=== PATIENT | female | born 1950 | race American Indian/Alaskan Native ===

== ENCOUNTER 2019-04-11 10:52 | Day surgery (SDC) | payer MEDICARE ==
[~2019-04-11 10:52] MED LIST: APRACLONIDINE 1% OPHTH SOLN DROPERETTE ONE; PHENYLEPHRINE 10% OPHTH SOLN 5 ML ONE; TROPICAMIDE 1% OPHTH SOLN 3 ML ONE
[2019-04-11 11:27] VITALS: BP 115/63
[2019-04-11] MEDS ORDERED: TROPICAMIDE 1% OPHTH SOLN 3 ML OS ONE (11:27)
[2019-04-11] MEDS ORDERED: APRACLONIDINE 1% OPHTH SOLN DROPERETTE OS ONE (11:27)
[2019-04-11] MEDS ORDERED: PHENYLEPHRINE 10% OPHTH SOLN 5 ML OS ONE (11:27)
== END 2019-04-11 10:53 | disposition home or self-care (01) ==
LOC: OR 10:52 → EDSEX 12:30
PROVIDERS: ATTEND Specialist
DX: E11.36 Type 2 diabetes mellitus with diabetic cataract (principal); H26.492 Other secondary cataract, left eye; I42.9 Cardiomyopathy, unspecified; J45.909 Unspecified asthma, uncomplicated; K21.9 Gastro-esophageal reflux disease without esophagitis; M19.90 Unspecified osteoarthritis, unspecified site; Z72.89 Other problems related to lifestyle; Z98.890 Other specified postprocedural states; Z91.041 Radiographic dye allergy status; Z88.2 Allergy status to sulfonamides; Z88.8 Allergy status to other drugs, medicaments and biological substances; Z79.899 Other long term (current) drug therapy; Z79.82 Long term (current) use of aspirin; Z98.42 Cataract extraction status, left eye; Z98.41 Cataract extraction status, right eye